=== PATIENT | male | born 1960 | race Caucasian/White ===

== ENCOUNTER → 2018-12-23 | Outpatient (CLI) | payer BC ==
--- NOTE | 2018-12-23 15:48 | PCVCIMAG ---
EXAM: RIGHT SUPERFICIAL VENOUS DUPLEX INDICATION: Leg pain and swelling. FINDINGS: Right leg: No thrombus in the common femoral, main femoral, or popliteal veins. These veins are compressible. 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 Right Great Saphenous Vein: At the saphenofemoral junction the diameter is 9.7 mm, in the mid thigh it is 10.8 mm, and in the calf it is 7.3 mm. There is significant venous insufficiency/reflux throughout. Venous insufficiency/reflux duration is 2.2 seconds. Right Small Saphenous Vein: At the saphenopopliteal junction the diameter is 5.5 mm, and in the calf it is 6.3 mm. There is not significant venous insufficiency/reflux throughout. Venous insufficiency/reflux duration is 0.2 seconds. There is not a cranial extension present. IMPRESSION: Right Great Saphenous Vein: Significant venous insufficiency/reflux is present as noted above. Right Small Saphenous Vein: No significant venous insufficiency/reflux is present as noted above. Incidental note is made of venous insufficiency in the right common femoral vein. LOC:[place] [id number]
--- NOTE | 2018-12-23 20:43 | PCVCIMAG ---
APPROVED REPORT Study performed: 12/23/2018 14:49:49 EXAM: Comprehensive 2D, Doppler, and color-flow Echocardiogram Patient Location: Echo lab Room #: 2Status: routine BSA: 2.11 HR: 79 bpmBP: 112/64 mmHg Rhythm: NSR Other Information Study Quality: Adequate Risk Factors: Cardiac Risk Factors: HTN, TK, Dyslipiemia Indications CAD Cor Ca+ elevated, 2D Dimensions IVSd: 8.01 (7-11mm)LVOT Diam: 21.28 (18-24mm) LVDd: 45.77 mm PWd: 11.44 (7-11mm)Ascending Ao: 37.93 (22-36mm) LVDs: 29.33 (25-40mm) Left Atrium: 23.15 (27-40mm) Aortic Root: 35.92 mm LV Single Plane 4CH: 59.82 % LV Single Plane 2CH: 61.00 % Biplane EF: 60.0 % Volumes Left Atrial Volume (Systole) Single Plane 4CH: 36.40 mLSingle Plane 2CH: 39.49 mL Biplane LA Volume: 41.00 mLLA ESV Index: 19.00 mL/m2 Aortic Valve AoV Peak Pete.: 1.70 m/s AO Peak Gr.: 13.10 mmHgLVOT Max P.96 mmHg LVOT Max V: 1.41 m/s PIOTR Vmax: 2.95 cm2 AI Vmax: 3.72 m/s AI [place]he: 2.41 m/s2 AI PHT: 462.56 ms Mitral Valve E/A Ratio: 1.1 MV Decel. Time: 189.74 ms MV E Max Pete.: 0.67 m/s MV A Pete.: 0.59 m/s IVRT: 114.19 ms TDI E/Lateral E': 8.38E/Medial E': 11.17 Medial E' Pete.: 0.06 m/s Lateral E' Pete.: 0.08 m/s Pulmonary Valve PV Peak Pete.: 0.96 m/sPV Peak Gr.: 3.72 mmHg Tricuspid Valve TR Peak Pete.: 2.18 m/s TR Peak Gr.: 19.09 mmHg TV Vmax: 0.67 m/sPA Pressure: 26.00 mmHg Left Ventricle The left ventricle is normal size. There is normal LV segmental wall motion. There is normal left ventricular wall thickness. Left ventricular systolic function is normal. The left ventricular ejection fraction is within the normal range. LVEF is 60%. Right Ventricle The right ventricle is normal size. The right ventricular systolic function is normal. Atria The left atrium size is normal. The right atrium size is normal. Aortic Valve Aortic valve is trileaflet. Mild aortic valve sclerosis. Mild aortic regurgitation. There is no aortic valvular stenosis. Mitral Valve The mitral valve is normal in structure. There is no mitral valve regurgitation noted. No evidence of mitral valve stenosis. Tricuspid Valve The tricuspid valve is normal in structure. There is no tricuspid valve regurgitation noted. Pulmonic Valve The pulmonary valve is normal in structure. There is no pulmonic valvular regurgitation. Great Vessels The aortic root is normal in size. Aortic arch is not well visualized. Ascending aorta is normal in caliber. IVC is normal in size and collapses >50% with inspiration. Pericardium There is no pericardial effusion. There is no pleural effusion. <Conclusion> The left ventricle is normal size. LVEF is 60%. Aortic valve is trileaflet. Mild aortic valve sclerosis. Mild aortic regurgitation. The mitral valve is normal in structure. The tricuspid valve is normal in structure. The pulmonary valve is normal in structure. Aortic arch is not well visualized. Ascending aorta is normal in caliber. There is no pericardial effusion.
== END | disposition home or self-care (01) ==
LOC: PCVCIMAG 14:03
PROVIDERS: ATTEND Internal Medicine
DX: I35.1 Nonrheumatic aortic (valve) insufficiency (principal); I87.2 Venous insufficiency (chronic) (peripheral); I10 Essential (primary) hypertension; E78.00 Pure hypercholesterolemia, unspecified; Z78.9 Other specified health status; Z68.27 Body mass index [BMI] 27.0-27.9, adult; Z79.899 Other long term (current) drug therapy; F17.200 Nicotine dependence, unspecified, uncomplicated
CPT/HCPCS: 93306; 93971

== ENCOUNTER → 2019-01-12 | Outpatient (CLI) | payer BC ==
[~2019-01-12] MED LIST: REGADENOSON 0.4 MG/5 ML DISP.SYRIN. IV ONE
--- NOTE | 2019-01-18 09:56 | PCVCIMAG ---
APPROVED REPORT Imaging Protocol: Rest Tc-99m/Stress Tc-99m 1 day Study performed: 01/12/2019 09:45:46 Indication: Abnormal Calcium Score Patient Location: Out-Patient Stress Nurse: Arabella Wagoner RN, Ana Maria Nuñez RN [place] Tech:Osmel Horner [id number] Ht: 6 ft 0 in Wt: 195 lbs BSA: 2.11 m2 HR: 80 bpm BP: 129/73 mmHg BMI: 26.4 Rhythm: Sinus Rhythm Medical History Medical History: Age, Former smoker Medications: Atorvastatin, Lisinopril Allergies: No known drug allergies Exercise History: Physically active Physical Disabilities: Ankle injury Resting Data Rest SPECT myocardial perfusion imaging was performed in supine position 45 minutes following the intravenous injection of 10.2 mCi of Tc-99m Sestamibi. Time of rest injection: 924 Date: 01/12/2019 Administration Route: IV Administration Site: Right AC Pharmacologic Stress Pharmacologic stress test was performed by injecting Regadenoson 0.4 mg IV push over 10-15 seconds immediately followed by the intravenous injection of 31.6 mCi of Tc-99m Sestamibi. Time of stress injection: 1040 Date: 01/12/2019 Administration Route: IV Administration Site: Right AC Gated Stress SPECT was performed 45 minutes after stress injection. The images were gated to evaluate regional wall motion and calculate left ventricular ejection fraction. Stress Test Details Stress Test: Pharmacologic stress was paired with low level exercise. Reason for pharmacologic stress test: Right ankle injury. HRMax Heart Rate (APMHR): 162 bpm Resting HR: 80 bpmTarget HR (85% APMHR): 137 bpm Max HR Achieved: 114 bpm % of APMHR: 70 Recovery HR: 88 bpm BP Resting BP: 129/73 mmHg Max BP: 160/73 mmHg Recovery BP: 156/93 mmHg ECG Resting ECG: Sinus Rhythm Stress ECG: Sinus Tachycardia Arrhythmia: None Clinical Reason for Termination: Completed protocol Stress Symptoms: Leg fatigue Symptoms resolved with caffeine. Stress ECG Conclusion 1. Adequate response to intravenous Lexiscan 2. Inadequate heart rate for ECG diagnosis Study Data Post stress, the left ventricular ejection was 72%.. SSS: 0 SRS: 0 SDS: 0 TID = 0.89. Perfusion There is a small area of moderately reduced uptake in the apical segment of the anterior wall which is seen on the stress images and normalizes on the resting images. This area thickens and moves normally and is most consistent with ischemia. Nuclear Conclusion ECG Findings: non-diagnostic Clinical Findings: negative for ischemia Nuclear Findings: positive for ischemia Exercise Capacity: not assessed Left Ventricular Function: normal 1. Intermediate risk study based on reversible apical wall and anteroapical wall defect suggestive of ischemia 2. Post exercise left ventricular ejection fraction of 72% with normal contractility Interpreted by: Leonidas Hughes MD Electronically Approved: 01/18/2019 09:56:19 <Conclusion> 1. Adequate response to intravenous Lexiscan 2. Inadequate heart rate for ECG diagnosis
== END | disposition home or self-care (01) ==
LOC: PCVCIMAG 09:05
PROVIDERS: ATTEND Internal Medicine
DX: R93.1 Abnormal findings on diagnostic imaging of heart and coronary circulation (principal); R07.9 Chest pain, unspecified; I87.2 Venous insufficiency (chronic) (peripheral); I83.811 Varicose veins of right lower extremity with pain; I25.10 Atherosclerotic heart disease of native coronary artery without angina pectoris; I10 Essential (primary) hypertension; E78.00 Pure hypercholesterolemia, unspecified; F17.200 Nicotine dependence, unspecified, uncomplicated; E78.5 Hyperlipidemia, unspecified; Z72.89 Other problems related to lifestyle
CPT/HCPCS: 78452; 93017; A9500; J2785